=== PATIENT | male | born 1970 | race Caucasian/White ===

== ENCOUNTER 2018-06-30 12:00 | Emergency (ER) | payer OTHER, SELFPAY ==
[2018-06-30 12:01] VITALS: BP 190/126; PULSE 105; RESP 16; TEMP 36.6; O2SAT 94; BMI 32.3
--- NOTE | 2018-06-30 12:08 | RAD_ITS ---
STUDY: X-RAY - LEFT SHOULDER REASON FOR EXAM: Male, 48 years old. Pain following injury. TECHNIQUE: 4 view(s) of the shoulder. COMPARISON: None. FINDINGS: Normal glenohumeral articulation. There is hypertrophic osteoarthrosis of the acromioclavicular joint with inferior osseous spur formation. Normal acromion. Normal humeral head and visualized proximal humerus. The soft tissue structures are unremarkable. Normal visualized pulmonary apex. 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 Electronically Signed: Akshat Toledo MD at 12:49 EDT Tel [phone], Service support ,
--- NOTE | 2018-06-30 13:00 | ED.VISSUMM ---
- ER Visit Summary Date of Service: 06/30/18 Chief Complaint: Left shoulder injury History of Present Illness: The patient is a 48 M who is on training exercises today. He was using his arms to climb out of a hole when he felt a grind in the left shoulder and pain. He is right-handed. Denies any previous shoulder dislocation or shoulder trauma. He can range the shoulder but is extremely painful particularly at abduction at 90?. Denies any decreased sensation or muscle strength. Physical Examination: Afebrile vital signs are stable Patient has limited range of motion due to pain. He is tender more in the anterior aspect of the shoulder joint. He starts to have pain at abduction of about 50? and stops at about 80?. He has no pain to palpation of the supraspinatus muscle. Neurovascular intact distally Test Results: Shoulder films are negative for fracture Emergency Department Course and Treatment: We talked about different possibilities including shoulder sprain, traumatic bursitis, labral tear, rotator cuff tear. We talked about the development of frozen shoulder. Acutely we will be treating with ice anti-inflammatories and sling. He will follow-up with med profile. Impression: 1. Left shoulder sprain This note was generated with [employer] dictation software. It may contain incorrect words, spelling, and punctuation that were not noted in review of the chart prior to signing ED Disposition - Plan for ED Patient: Disposition: Home or Assisted Living Chief Complaint: Upper Extremity Injury Instructions: ED Sprain Shoulder Referrals: [facility]GROUP OF PHYSICIANS] - Additional Instructions: Motrin 800 mg 3 times a day ?1 week Ice 20 minute sessions 6 times a day for the next 3 days Limited use of left arm as discussed Prevention of frozen shoulder as discussed Follow-up with [facility]
== END 2018-06-30 13:15 | disposition home or self-care (01) ==
PROVIDERS: Emergency Provider Emergency Medicine
DX: S43.402A Unspecified sprain of left shoulder joint, initial encounter (principal); X58.XXXA Exposure to other specified factors, initial encounter; Y93.39 Activity, other involving climbing, rappelling and jumping off; Y92.9 Unspecified place or not applicable; Y99.8 Other external cause status
CPT/HCPCS: 73030; 99283

== ENCOUNTER → 2020-04-04 15:16 | Outpatient (CLI) | payer OTHER, SELFPAY ==
[2019-11-21 07:49] VITALS: BMI 31.5
--- NOTE | 2020-04-04 15:28 | RAD_ITS ---
STUDY: X-RAY - LUMBAR SPINE REASON FOR EXAM: Male, 49 years old. LOWER BACK PAIN. HX OF FUSION TECHNIQUE: 3 view(s) of the lumbar spine were obtained. COMPARISON: None FINDINGS: There is straightening of the normal lumbar lordosis. There is no substantial scoliosis. There is a normal alignment of the vertebrae. There has been discectomy at L3-L4 with a disc spacer. Bilateral pedicular screws and short posterior rods seen at L3-L4. Grossly satisfactory postoperative appearance. Moderate degenerative disc disease and spondylosis at L1-L2. Mild degenerative disc disease and loss of height at all other levels. No acute abnormality, no fracture. The soft tissue structures are unremarkable. RAD/Lumbar Spine 2 or 3 Views IMPRESSION: Postoperative changes at L3-L4 and multilevel [id number] degenerative changes. No acute abnormalities. Electronically Signed: Kolby Diaz MD at 15:42 EDT , Service support ,
== END ==
PROVIDERS: Referring Provider Anesthesiology Pain Medicine; Visit Provider Anesthesiology Pain Medicine
DX: M54.9 Dorsalgia, unspecified (principal)
CPT/HCPCS: 72100

== ENCOUNTER → 2020-08-02 07:11 | Outpatient (CLI) | payer OTHER, SELFPAY ==
[2019-11-21 07:49] VITALS: BMI 31.5
--- NOTE | 2020-08-02 07:16 | MRI_ITS ---
STUDY: MRI LUMBAR SPINE WITHOUT CONTRAST REASON FOR EXAM: Male, 50 years old. left low back pain x 6 mos, no radiculopathy, hx prior fusion TECHNIQUE: Standardized fat and water weighted pulse sequences were obtained in the sagittal and axial planes. COMPARISON: X-ray 04/04/2020 FINDINGS: T12-L1: Normal endplates. Normal disc height, hydration and morphology. Normal bilateral facet joints. Normal central canal and bilateral lateral recesses. Normal bilateral intervertebral neural foramina. Normal lumbar lordosis. There is no substantial scoliosis. Normal conus medullaris that terminates at the T12/L1. L1-2: Mild broad disc protrusion asymmetric to the right produces mild spinal stenosis and mild right neural foraminal stenosis. L2-3: Moderate bilateral facet hypertrophy and ligament flavum hypertrophy. Mild broad disc protrusion with a Moderate sized (8 mm) superiorly extending left paracentral disc extrusion produces moderate spinal stenosis and moderate left lateral recess stenosis with effacement of the left L3 nerve root and mild bilateral neural foraminal stenosis. L3-4: Status post discectomy, interbody fusion and transpedicular fixation with anatomic alignment and no spinal stenosis or neural foraminal stenosis. L4-5: Mild bilateral facet hypertrophy and ligament flavum hypertrophy. Mild broad disc protrusion produces mild spinal stenosis and mild bilateral neural foraminal stenosis. L5-S1: Mild broad disc protrusion produces mild spinal stenosis and mild bilateral neural foraminal stenosis. Normal visualized sacral ala. Normal visualized paraspinous soft tissue structures. MRI/Spine Lumbar (Routine) IMPRESSION: Status post fixation at L3/L4 with degenerative disc disease at L2/L3 as described above. Electronically Signed: Wale Rivera MD at 10:12 EDT Tel , Service support ,
== END ==
PROVIDERS: Referring Provider Anesthesiology Pain Medicine; Visit Provider Anesthesiology Pain Medicine
DX: M54.9 Dorsalgia, unspecified (principal); M79.606 Pain in leg, unspecified
CPT/HCPCS: 72148

== ENCOUNTER 2020-08-10 10:30 | Outpatient (RCR) | payer OTHER, SELFPAY ==
[2019-11-21 07:49] VITALS: BMI 31.5
--- NOTE | 2020-07-16 10:58 | HP.PTEVAL_ITS ---
Patient's Visit Information PRESTON JUAREZ is a 50 year old M referred to Physical Therapy by Dr. Isa Howe MD with a diagnosis of LBP. Date of Evaluation: 07/16/20 Physical Therapist: Niranjan Sanchez PT, ATC - Visit Plan Frequency: 2-3x /Week Duration: 4 Weeks Plan: postural awareness, neutral spine stab ex's, nustep, and HEP - Subjective Pt reports a chronic Hx of LBP. Pt reports he had a spinal fusion 5 years ago which helped his pain a lot, but the pain has returned over the past few months and is progressively worsening. No tingling or numbness in LE's. Pt reports sleep difficulty at this time secondary to pain. Pt reports prolonged standing and walking increases his pain. Pt reports the only way he gets relief is to sit down. 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 Pt reports it is difficult for his to stand after sleeping at night. 3/10 pain at rest, 10/10 pain at worst. Pt has had recent xrays, but he has not received the results. - Pain LBP Pain Intensity (Out of 10): 3 Pain Intensity Range: 10 - Objective Neuro: B LE sensation is WNL to light touch. B patellar reflex= 1/3. MMT: B LE's 5/5 throughout. ROM: Pt is moderately limited with ext. L SB is minimally limited. All other ranges are WNL. Repeated movements: RFIS 10x3 NE. CHRISTINE 10x2 increased pain. - Goals Goal 1:: Decrease LBP x 50% to aid with sleep Goal Time Frame: 4-6 Weeks Goal 2:: Pt will be I with postural awareness both physically and verbally to prevent future episodes on LBP Goal Time Frame: 4-6 Weeks Goal 3:: I with HEP Goal Time Frame: 4-6 Weeks - Rehabilitation Potential Physical Therapy Diagnosis: Pt has LBP, limited ROM, and difficulty with prolonged walking secondary to deg changes in L/S Rehabilitation Potential: Good - Anticipated Interventions Patient/Client Instruction: Educate patient on: Condition, Plan of Care For the Purpose of:: To improve self management Therapeutic Exercise to Include: Strength training, Endurance training, Body mechanics, Postural training, Dynamic Lumbar Stabilization For the Purpose of:: To decrease pain, To increase ROM, To improve muscle performance and motor function IF ES: Yes For the Purpose of:: To decrease pain Thank you for the opportunity to evaluate your patient. For Medicare and Medicare HMO plans, please review the plan of care and approve it. It will need to be FAXED BACK to us at [phone] for Medicare purposes. For Medicare only, by signing this I certify the plan of care. Please let me know if there are questions or concerns regarding this plan of care. Physician Signature: Date:
--- NOTE | 2020-08-10 10:55 | HP.PTDCSUM ---
It has been my pleasure to treat PRESTON JUAREZ referred by Dr. Isa Howe MD, with the diagnosis of LBP for a total of 11 visit(s). Discharge Date: Please see the following information for a summary of their discharge status. Subjective: I am ready to be done. I have surgery on 08/22/20. LBP Pain Intensity (Out of 10): 3 % Improvement: 0 Objective/Function: LBP 3/10 at this time, elevates to 10/10 at worst. Pt is I with postural awareness. Pt is I with HEP Goal 1:: Decrease LBP x 50% to aid with sleep Goal Progress: Not Progressing Goal 2:: Pt will be I with postural awareness both physically and verbally to prevent future episodes on LBP Goal Progress: Goal Met Goal 3:: I with HEP Goal Progress: Goal Met Plan: Discontinue to HEP until surgery If there are questions or concerns regarding this patient's physical therapy, please feel free to call me at [phone]. Thank you for the referral of this patient. Sincerely, Niranjan Sanchez, PT, ATC
== END 2020-08-10 19:00 | disposition home or self-care (01) ==
LOC: PT 10:30
PROVIDERS: Referring Provider Anesthesiology Pain Medicine; Visit Provider Anesthesiology Pain Medicine
DX: M54.9 Dorsalgia, unspecified (principal); M79.606 Pain in leg, unspecified
CPT/HCPCS: 97014; 97110; 97161; 97164; G0283

== ENCOUNTER 2020-11-12 14:00 | Outpatient (RCR) | payer OTHER, SELFPAY ==
[2019-11-21 07:49] VITALS: BMI 31.5
--- NOTE | 2020-09-17 13:04 | HP.PTEVAL ---
Patient's Visit Information PRESTON JUAREZ is a 50 year old M referred to Physical Therapy by MARY LOU Cullen with a diagnosis of S/P REVISION B L23 MICRODECOMP AND MICRODISC LL23 FORAMINOTOMIES 08/22. Date of Evaluation: 09/17/20 Physical Therapist: Donna Teresa PT, Cert MDT - Visit Plan Frequency: 2-3x /Week Duration: 4-6 Weeks Plan: NO LUMBAR ROM FOR 3 MORE WKS. POSTURE CORRECTION/STRENGTHENING, INSTRUCTION IN APPROPRIATE BODY MECHANICS AND ACTIVITY MODIFICATIONS. DLS STARTING WITH A NEUTRAL SPINE PROGRESSING ROM TOLERATED AFTER 3 WKS. ROVERTO LE ROM, STRETCHING AND STRENGTHENING. HEP INSTRUCTION. - Subjective S/P REVISION B L23 MICRODECOMP AND MICRODISC LL23 FORAMINOTOMIES 08/22. 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 OFF WORK UNTIL AT LEAST OCT 25 2020. EXPECTING TO BE OFF WORK ABOUT 12 WEEKS. Present symptoms: LOW BACK PAIN. ROVERTO HIP PAIN. Present since: ABOUT 8 MONTHS AGO. Pain Scale: WORST 9/10, LEAST 2/10. Currently: 2/10, GETTING BETTER. Commenced as a result of: STARTED AN ADDITION ON HOUSE. DOES CONSTRUCTION ON THE SIDE ANYWAY BUT HAD RAMPED IT UP BEFORE ONSET OF THIS EPISODE. Worse: STANDING AND WALKING. TURNING IN BED. ANY LIFTING. BENDING. PUTTING DOGS DISHES ON THE FLOOR. Better: RESTING IN FAVORITE CHAIR OR COUCH. Disturbed sleep: YES. Previous history/Previous treatment: PRIOR L45 FUSION 2013. PATIENT REPORTS JUST SLIGHT PAIN BEFORE 8 MONTHS AGO. Treatment this episode: S/P REVISION B L23 MICRODECOMP AND MICRODISC LL23 FORAMINOTOMIES 08/22/2020. Coughing/sneezing/straining: POSITIVE. Gait: TIME AND DISTANCE LIMITED. NO ASSISTIVE DEVICES. WHEN I AM UP FOR 15 TO 20 MINUTES IT TIGHTENS UP. Difficulty initiating urinatin: NO. Accidents: NO. Unexplained weight loss: NO. Imaging: NONE SINCE SURGERY. PMH: L ROTATOR CUFF REPAIR 2017. H/O RIGHT SHLD PAIN. - Objective Sitting/Standing Posture: REDUCED LUMBAR LORDOSIS. NO RELELVENET LATERAL SHIFT. Active Correction of posture: WORSE. INCREASES LBP IF CORRECTED ACTIVELY BUT TOLERATES PASSIVE SUPPORT WELL. Other Observations: INDEP GAIT AND TRANSFERS. NO AD'S. Motor deficit: Sensory deficit: ROM deficit: Reflexes: Dural Signs: Lumbar mvmt loss: NT. Core strength: POOR. Palpation: PIN HEAD SIZE RED AREA VERY BOTTOM OF INCISION. MAYBE AN UNDISOVED STITCH PRESENT. NO DRAINAGE OR SURROUNDING REDNESS. TO MONITOR. WILL CALL SURGEON IF NOT HEALING. TREATMENT: NEUROMUSCULAR REEDUCATION - RETRAINING OF MVMT AND POSTURE FOR SITTING, LYING AND STANDING ACTIVITIES. INSTRUCTIONS IN WEANING OUT OF BACK BRACE. WALKING PROGRAM INST. INITIATED HEP WITH SUPINE ISO ABDOMINALS AND ROVERTO LE DURAL STRETCHING WORKING UP TO 3X10 EA 2 - 3 TIMES A DAY - Goals Goal 1:: DECREASE C/O BACK AND HIP PAIN. Goal Time Frame: 4-6 Weeks Goal 2:: IMPROVE PERSONAL CARE, LIFTING, WALKING, SITTING, STANDING, SLEEP, SOCIAL LIFE, TRAVEL AND WORK FUNCTION. Goal Time Frame: 4-6 Weeks Goal 3:: INSTRUCT IN PROPHYLAXIS Goal Time Frame: 4-6 Weeks - Anticipated Interventions Patient/Client Instruction: Educate patient on: Condition, Plan of Care, Risk Factors, Benefits of Fitness Program For the Purpose of:: To improve self management Therapeutic Exercise to Include: Strength training, Body mechanics, Postural training, Flexibilty training, Neuromotor development, In an aquatic setting, Dynamic Lumbar Stabilization For the Purpose of:: To decrease pain, To increase ROM, To improve muscle performance and motor function, To increase tolerance to activity/condition/position, To improve ability of physical actions for home/community/work/leisure Thank you for the opportunity to evaluate your patient. For Medicare and Medicare HMO plans, please review the plan of care and approve it. It will need to be FAXED BACK to us at [phone] for Medicare purposes. For Medicare only, by signing this I certify the plan of care. Please let me know if there are questions or concerns regarding this plan of care. Physician Signature: Date:
--- NOTE | 2020-10-26 15:24 | HP.PTREVAL ---
Trinity Elizondo, TORO-C, It has been my pleasure to treat PRESTON JUAREZ over the last 16 visits for S/P REVISION B L23 MICRODECOMP AND MICRODISC LL23 FORAMINOTOMIES 08/22. Please see the progress note below for an update on the physical therapy plan of care! Subjective: PATIENT REPORTS HE IS A LOT BETTER. HIS PAIN IS BETTER AND HIS STRENGTH AND STAMINA ARE BETTER. REPORTS SEEING DR. 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 PATIENT REPORTS HE FEELS HE WILL BE READY BY THEN. PATIENT REPORTS HE HAS ACCESS TO A GYM AT WORK AND HE HAS EX EQUIPMENT AT HOME TOO. Objective/Function: PATIENT WAS SEEN TODAY FOR RE-ASSESSMENT OF PROGRESS TOWARD THE SET PT GOALS AND THE NEED FOR FURTHER PHYSICAL THERAPY VS READINESS FOR DISCHARGE. PATIENT IS DOING GREAT WITH PT. HE IS A GOOD CANDIDATE TO CONTINUE PT FOR EX PROGRESSION BASED ON PROGRESS MADE, ROOM FOR FURTHER IMPROVEMENT AND THE NATURE OF HIS VERY PHYSICAL JOB. UPON EXAM TODAY: LUMBAR MVMT LOSS: FLEX - NIL. EXT - MOD. RSG - NIL. LSG - NIL. PATIENT DEMO'S DIFFICULTY WITH SLS ACTIVITIES ROVERTO BUT ABLE TO MAINTAIN LEVEL PELVIS FOR AT LEAST 10 SEC ROVERTO. ROVERTO LE STRENGTH, ROM AND SENSATION WFL. REVIEWED REP EIL, SKTC AND LTR EX'S FOR HOME. INCISION IS WELL HEALED. Plan Plan: CONTINUE PT TO HELP PATINET TRANSITION BACK TO WORK AND TO [facility] AND [employer] GYM PROGRAMS. INCLUDE WORK SIMULATION ACTIVITIES. INCLUDE TRUNK AND LE PROPRIOCEPTION ACTIVITIES. CONTINUE ENDURANCE AND GENERAL ROM, STRETCHING AND STRENGTHENING ACTIVITIES. PATIENT IS AGREEABLE. Goals Goal 1:: DECREASE C/O BACK AND HIP PAIN. Goal Time Frame: 4-6 Weeks Goal Progress: Progressing Goal 2:: IMPROVE PERSONAL CARE, LIFTING, WALKING, SITTING, STANDING, SLEEP, SOCIAL LIFE, TRAVEL AND WORK FUNCTION. Goal Time Frame: 4-6 Weeks Goal Progress: Progressing Goal 3:: INSTRUCT IN PROPHYLAXIS Goal Time Frame: 4-6 Weeks Goal Progress: Progressing Anticipated Interventions Patient/Client Instruction: Educate patient on: Condition, Plan of Care, Risk Factors, Benefits of Fitness Program For the Purpose of:: To improve self management Therapeutic Exercise to Include: Strength training, Body mechanics, Postural training, Flexibilty training, Neuromotor development, In an aquatic setting, Dynamic Lumbar Stabilization For the Purpose of:: To decrease pain, To increase ROM, To improve muscle performance and motor function, To increase tolerance to activity/condition/position, To improve ability of physical actions for home/community/work/leisure Please do not hesitate to contact me at [phone] by phone or if you have questions or concerns regarding this new plan of care! Sincerely, Donna Teresa, PT, Cert MDT
--- NOTE | 2020-11-12 14:49 | HP.PTDCSUM ---
It has been my pleasure to treat PRESTON JUAREZ referred by MARY LOU Cullen, with the diagnosis of S/P REVISION B L23 MICRODECOMP AND MICRODISC LL23 FORAMINOTOMIES 08/22 for a total of 22 visit(s). Discharge Date: Please see the following information for a summary of their discharge status. Subjective: PATIENT REPORTS THERAPY HAS BEEN GOOD AND HE FEELS READY TO GO BACK TO WORK AND BE DISCHARGED. HE STATES HE CAN CONTINUE THE EX'S ON HIS OWN AT WORK AND AT HOME. Low back Pain Intensity (Out of 10): 0 % Improvement: 97 Objective/Function: PATIENT WAS SEEN TODAY FOR RE-ASSESSMENT OF PROGRESS TOWARD THE SET PT GOALS AND THE NEED FOR FURTHER PHYSICAL THERAPY VS READINESS FOR DISCHARGE. PATIENT HAS DONE GREAT WITH PT. HE IS APPROPRIATE FOR DISCHARGE TO INDEP EX AT THIS TIME. UPON EXAM TODAY: LUMBAR MVMT LOSS: FLEX - NIL. EXT - MIN. RSG - NIL. LSG - NIL. PATIENT STILL DEMO'S SOME LEG SHAKING WITH SLS ACTIVITIES ROVERTO WITH TESTING BUT IT IS NOT LIMITING HIM FUNCTIONALLY. ALL GOALS HAVE BEEN MET. Goal 1:: DECREASE C/O BACK AND HIP PAIN. Goal Progress: Goal Met Goal 2:: IMPROVE PERSONAL CARE, LIFTING, WALKING, SITTING, STANDING, SLEEP, SOCIAL LIFE, TRAVEL AND WORK FUNCTION. Goal Progress: Goal Met Goal 3:: INSTRUCT IN PROPHYLAXIS Goal Progress: Goal Met Plan: D/C. PATIENT AGREEABLE. If there are questions or concerns regarding this patient's physical therapy, please feel free to call me at [phone]. Thank you for the referral of this patient. Sincerely, Donna Teresa, PT, Cert MDT
== END 2020-11-12 19:00 | disposition home or self-care (01) ==
LOC: PT 14:00
PROVIDERS: Referring Provider Nurse Practitioner Acute Care; Visit Provider Nurse Practitioner Acute Care
DX: M48.061 Spinal stenosis, lumbar region without neurogenic claudication (principal)
CPT/HCPCS: 97110; 97112; 97162; 97164

== ENCOUNTER 2022-10-30 16:00 | Outpatient (RCR) | payer OTHER, SELFPAY ==
--- NOTE | 2022-10-06 18:28 | HP.PTEVAL_ITS ---
Patient's Visit Information PRESTON JUAREZ is a 52 year old M referred to Physical Therapy by MARK ARZOLA with a diagnosis of LUMBAR STRAIN. Date of Evaluation: 10/06/22 Physical Therapist: Donna Teresa PT, Cert MDT - Visit Plan Frequency: 2-3x /Week Duration: 4-6 Months Plan: NOV 11 [address] SEKOU MULLEN. MONITOR LLE SX'S AND L ANKLE WEAKNESS. AQUATIC THERAPY FOR PAIN RELEIF, POSTURE CORRECTION/STRENGTHENING, INSTRUCTION IN APPROPRIATE BODY MECHANICS AND ACTIVITY MODIFICATIONS. DLS STARTING WITH A NEUTRAL SPINE PROGRESSING ROM TOLERATED. ROVERTO LE ROM, STRETCHING AND STRENGTHENING. HEP INSTRUCTION. 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 NOT CURRENTLY OFF WORK BUT HAS MISSED A FEW DAYS OF WORK. STATES HE CAN PRETTY MUCH DO EVERYTHING IF HE IS EXTRA CAREFUL. OFF WORK FROM [employer]RE [employer] X 2 WEEKS NOW FOR VACATION. 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 Present symptoms: ROVERTO LOW BACK PAIN LEFT > RIGHT. LEFT BUTTOCK PAIN AND AROUND HIP. GETTING SOME WEAKNESS AND WEIRD FEELING GOING DOWN LEFT LEG TO CALF AND JUNIOR. Present since: 3 WKS AGO. WOKE UP WITH THE PAIN. Pain Scale: WORST 5/10, LEAST 1/10 (IN THE LAST 2-3 DAYS). Currently: 1/10. Is it getting better, worse or staying the same: GETTING BETTER ON THE PREDNISONE. Commenced as a result of: NO APPARENT REASON. Symptoms at onset: WOKE UP WITH L LBP AND IT GOT WORSE IN STANDING. Worse: BEING ON FEET - STANDING AND WALKING. Better: SITTING AND LYING. OTHER: PATIENT REPORTS BENDING, LIFTING AND TWISTING CURRENTLY DO NOT INCREASE PAIN. Disturbed sleep: SOMETIMES. Previous history/Previous treatment: 10 YEARS AGO LUMBAR FUSION L45 BY DR. SEKOU MULLEN. 2 YEARS AGO HAD SECOND LUMBAR SURGERY BY DR. SEKOU MULLEN. Treatment this episode: HAS HAD ONE DOCTOR VISIT AT [facility] AND WAS PRESCRIBED PREDNISONE. CALLED THEM AND THEN SECOND ROUND OF PREDNISONE ORDERED. STATES HERNANDO SORENSEN AT [facility] ORDERED MRI BUT DENIED. HAS BEEN DOING PRESCRIBED HOME EX'S TOO BUT HAVEN'T HELPED MUCH. ON SECOND ROUND OF PREDNISONE. LAST DOSE OF PREDNISONE IS DUE TOMORROW. WAS GOOD ON PREDNISONE FIRST TIME THEN PAIN CAME BACK WHEN STOPPED THE MEDICINE. PREDNISONE IS HELPING AGAIN THIS TIME. Coughing/sneezing/straining: NEGATIVE. Gait: LIMPING MORE SOMETIMES ON L LE NOW WHEN LEG FEELS WEIRD. TIME AND DISTANCE LIMITED. Bowel or Bladder Dysfunction: NO. (INSTRUCTED PATIENT TO GET URGENT CARE IF CHANGE IN BOWEL OR BLADDER FUNCTION). Accidents: NO. Unexplained weight loss: NO. Imaging: RECENTL LUMBAR X-RAYS AND PATIENT REPORTS THE PA TOLD HER THEY LOOK PRETTY GOOD. STATES THEY SAW SOME NARROWING BUT THE FUSION LOOKED GOOD AND THERE ISN'T ANYTHING LOOSE. PMH/Recent major surgery: L RCR ABOUT 4 YEARS AGO. REMOTE L KNEE SURGERY - RECOVERED. HTN. - Objective Sitting/Standing Posture: FAIR. REDUCED LUMBAR LORDOSIS BUT NO RELEVENT LATERAL SHIFT. Active Correction of posture: WORSE MORE PRESSURE. Other Observations: INDEP GAIT AND TRANSFERS. Sensory deficit: DECREASED L LATERAL LEG LIGHT TOUCH COMPARED TO R. ROM deficit: TIGHT ROVERTO LE HS'S AND GASTROC SOLEUS COMPLEX'S L > R. Motor deficit: LEFT DORSIFLEXION 3-/5. OTHERWISE ROVERTO LE'S GROSSLY 5/5 WITH MMT'ING. PATIENT REPORTS INTERMITTENT WEAKNESS IN L LE WHEN LEG FEELS WIERD. RECOMMENDED PATIENT LET DR. SEKOU MULLEN KNOW ABOUT L ANKLE WEAKNESS. Reflexes: UNABLE TO ELICIT ROVERTO LE DTR'S. Dural Signs: POSITIVE LLE. Lumbar mvmt loss: flex - NIL. ext - MOD. R SG - MOD. L SG - MOD. PATIENT C/O INCREASED L LBP WITH L SG TESTING. Core strength: FAIR. Palpation: NO ACUTE LUMBAR TENDERNESS. TREATMENT: NEUROMUSCULAR REEDUCATION - INTRODUCTION TO RETRAINING OF MVMT AND POSTURE FOR SITTING, LYING AND STANDING ACTIVITIES. USE OF LUMBAR SUPPORT, PROPER USE OF ICE/HEAT AND AVOIDANCE OF PERIPHERALIZATION OF SX'S. - Balance/Special Test Scores Oswestry Low Back Score: 12 - Goals Goal 1:: DECREASE C/O LOW BACK AND L LE SX'S. Goal Time Frame: 4-6 Weeks Goal 2:: IMPROVE LIFTING, SITTING, STANIDNG, WALKING, SLEEP, TRAVEL AND WORK/HOMEMAKING FUNCTION Goal Time Frame: 4-6 Weeks Goal 3:: INSTRUCT IN PROPHYLAXIS Goal Time Frame: 4-6 Weeks - Anticipated Interventions Patient/Client Instruction: Educate patient on: Condition, Plan of Care, Risk Factors For the Purpose of:: To improve self management Therapeutic Exercise to Include: Strength training, Body mechanics, Postural training, Flexibilty training, Gait and locomotor training, Neuromotor developm ent, In an aquatic setting, Dynamic Lumbar Stabilization For the Purpose of:: To decrease pain, To increase ROM, To improve muscle performance and motor function, To increase tolerance to activity/condition/position, To improve ability of physical actions for home/community/work/leisure, To improve gait and locomotor functions Thank you for the opportunity to evaluate your patient. For Medicare and Medicare HMO plans, please review the plan of care and approve it. It will need to be FAXED BACK to us at [phone] for Medicare purposes. For Medicare only, by signing this I certify the plan of care. Please let me know if there are questions or concerns regarding this plan of care. Physician Signature: Date:
--- NOTE | 2023-01-20 09:54 | HP.PT.NRP ---
PRESTON JURAEZ was seen in my office for initial evaluation on 10/06/22. The following Plan of Care was established for this patient: Initial Frequency: 2-3x /Week Initial Duration: 4-6 Months Patient/Client Instruction: Educate patient on: Condition, Plan of Care, Risk Factors For the Purpose of:: To improve self management Therapeutic Exercise to Include: Strength training, Body mechanics, Postural training, Flexibilty training, Gait and locomotor training, Neuromotor development, In an aquatic setting, Dynamic Lumbar Stabilization For the Purpose of:: To decrease pain, To increase ROM, To improve muscle performance and motor function, To increase tolerance to activity/condition/position, To improve ability of physical actions for home/community/work/leisure, To improve gait and locomotor functions This patient was last seen in our office 10/30/22. Pertinent comments regarding their Physical therapy will appear below: This patient has not returned to Physical Therapy and is appropriate to return to MD for further follow-up as needed. At this point I will be discontinuing this patient from physical therapy. I would be happy to see this patient again in the future if found appropriate by the physician. Thank you! Donna Teresa, PT, Cert MDT Balance/Gait/Functional tests - Balance/Special Test Scores Oswestry Low Back Score: 12
== END 2022-10-30 19:00 | disposition home or self-care (01) ==
LOC: PT 16:00
DX: S39.012D Strain of muscle, fascia and tendon of lower back, subsequent encounter (principal)
CPT/HCPCS: 97112; 97113; 97162

== ENCOUNTER 2024-11-14 08:27 | Day surgery (SDC) | payer OTHER, SELFPAY ==
--- NOTE | 2024-11-03 12:02 | PAT.ANESEVAL ---
Pre-Assessment Diagnosis/Proposed Procedure Planned Operative Procedure(s): ROBOTIC ASSISTED LEFT INGUINAL HERNIA REPAIR WITH MESH Anesthesia History Anesthesia History - driller and broacher: Anesthesia History - driller and broacher Hx Hospitalization No 11/03/24 10:07 Any Problems With Anesthesia No 11/03/24 10:07 Cholinesterase deficiency No 11/03/24 10:07 You/Your Family Experience No 11/03/24 10:07 fever (hyperthermia) with Relationship Recent Exposure to Contagious Disease Does patient have nerve No 11/03/24 10:07 stimulator Patient instructed to have device shut off --Does patient have Pacemaker or ICD? When Was Last Pacemaker Check QUESTION #4 FULL TEXT: You/Your Family Experience fever (hyperthermia) with Anesthesia Last Oral Intake Last Oral intake: Last Oral Intake NPO since Meds taken in AM with sips of water? Meds patient instructed to take am of surgery PONV PONV - driller and broacher: PONV - driller and broacher Female No 11/03/24 10:07 HX of Motion Sickness No 11/03/24 10:07 HX of N/V After Surgery No 11/03/24 10:07 Non-Smoker No 11/03/24 10:07 Duration of Surgery greater Yes 11/03/24 10:07 than 60 minutes Number of Risk Factors 1 11/03/24 10:07 PONV Score Low Risk 11/03/24 10:07 Height & Weight Height & Weight: Anesthesia: Height & Weight Height 5 ft 10 in 10/27/24 14:08 Respiratory Assessment Respiratory Assessment - driller and broacher: Respiratory Tract Infection Hx - driller and broacher Hx Respiratory Tract Infection No 11/03/24 10:07 STOP Sleep Apnea STOP Sleep Apnea - driller and broacher: STOP Sleep Apnea - driller and broacher Hx Hypertension Yes: CONTROLLED WITH MED 11/03/24 10:07 Hx Sleep Apnea No 11/03/24 10:07 CPAP BIPAP Do you snore loudly (louder No 11/03/24 10:07 than talking or can be heard Do you often feel tired/ No 11/03/24 10:07 fatigued/ sleepy during daytime? Has anyone observed you stop No 11/03/24 10:07 breathing during sleep? STOP Results Negative 11/03/24 10:07 QUESTION #5 FULL TEXT : Do you snore loudly (louder than talking or can be heard through closed doors)? 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 Specify any problems Hx of Preganancy in last 3 No 11/03/24 10:07 Months Nurse Filling Out Transfusion DSCHRIBER 11/03/24 10:07 & Questions: Date: 11/03/24 11/03/24 10:07 Time: 10:08 11/03/24 10:07 Patient unable to answer at this time (ie. 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 Home Medications ?Medication ?Instructions ?Recorded ?Last Taken ?Type ascorbic acid (vitamin C) 500 mg 500 mg PO QDAY 10/27/24 Unknown History tablet calcium 600 mg-D3 20 mcg-magnesium 1 tab PO DAILY 10/27/24 Unknown History 50 mg-copper 1 [id number] tablet coenzyme Q10 200 mg capsule 200 mg PO QDAY 10/27/24 Unknown History lisinopril 20 1 tab PO QDAY 10/27/24 Unknown History mg-hydrochlorothiazide 12.5 mg tablet sour mckeon extract 1,000 mg 1,000 mg PO DAILY 10/27/24 Unknown History capsule (Tart Mckeon Extract) Allergy/AdvReac Type Severity Reaction Status Date / Time No Known Allergies Allergy Verified 11/03/24 10:05 Family History (Updated 10/27/24 @ 14:07 by Em Lundberg) Grandmother Cancer Father Heart disease Surgical History (Updated 11/03/24 @ 10:14 by Xochitl Hui) Hx of decompressive lumbar laminectomy Hx of colonoscopy History of repair of left rotator cuff History of lumbar fusion History of appendectomy Social History (Updated 10/27/24 @ 14:08 by Em Lundberg) Smoking Status: Current every day smoker tobacco type: smokeless tobacco alcohol intake: current alcohol intake frequency: a few times a week Alcohol type: beer and hard liquor substance use type: does not use Audit: Pertinent Findings Pertinent Findings EKG Perinent findings: 07/26/2024 sinus rhythm RSR V1 nondiagnostic probably normal Recommendation Anesthesia Recommendation Anesthesia recommendation: OPTIMIZED for anesthesia
[2024-11-08 12:49] LABS: Hematocrit 45.5 % (40-54); Hemoglobin 15.9 g/dL (13.0-16.5); Mean Corp Hgb Conc 34.9 g/dL (32-36); Mean Corpuscular Hgb 32.1 pg (27.0-32.0); Mean Corpuscular Volume 91.9 fL (80-94); Mean Platelet Vol. 10.8 fl (6.2-12.0); Platelet Count 260 K/mm3 (150-450); RBC Distribution Width CV 11.9 % (11.6-14.6); RBC Distribution Width SD 40.2 fl (35.1-43.9); Red Blood Count 4.95 M/mm3 (4.6-6.2); White Blood Count 7.9 K/mm3 (4.4-11.0)
[2024-11-08 13:12] LABS: Anion Gap 6 (5-15); BUN 20 mg/dL (7-18); BUN/Creat Ratio 17.2 RATIO (10-20); Calcium,Total 9.3 mg/dL (8.5-10.1); Chloride 101 mmol/L (98-107); Creatinine, Serum 1.16 mg/dL (0.70-1.30); EST Glomerular Filtration Rate 70 mL/min (>60); Est Glom Filt Rate - Afr Amer 84 mL/min (>60); Glucose 117 mg/dL (74-106); Sodium Level 136 mmol/L (136-145)
[2024-11-14] VITALS (12 sets, daily range): BP systolic 120–151; BP diastolic 72–101; PULSE 84–98; RESP 12–18; TEMP 36–36.7; O2SAT 95–99; BMI 34.1
[2024-11-14] MEDS: 0.9% Normal Saline (1000mL) 1,000 ML 15 ML IV (09:10)
--- NOTE | 2024-11-14 09:37 | PCM.HP.STD ---
HPI - General General Date of Admission: 11/14/24 Date of Service: 11/14/24 Chief Complaint: left inguinal hernia HPI Narrative RPESTON JUAREZ, is a 54 M who presents for elective left inguinal hernia repair. Patient was recently seen through my office for left inguinal hernia. I offered him a robotic repair with mesh. We discussed the possibility of a right inguinal hernia as well if 1 was noted at the time of surgery. No obvious right-sided hernia was encountered on exam when seen in the office. We discussed the details of the planned surgery including risk benefits and alternatives and he wished to proceed. 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 cardiology consultants health examination Home Medications ?Medication ?Instructions ?Recorded ?Last Taken ?Type ascorbic acid (vitamin C) 500 mg 500 mg PO QDAY 10/27/24 Unknown History tablet calcium 600 mg-D3 20 mcg-magnesium 1 tab PO DAILY 10/27/24 Unknown History 50 mg-copper 1 [id number] tablet coenzyme Q10 200 mg capsule 200 mg PO QDAY 10/27/24 Unknown History lisinopril 20 1 tab PO QDAY 10/27/24 Unknown History mg-hydrochlorothiazide 12.5 mg tablet sour diaz extract 1,000 mg 1,000 mg PO DAILY 10/27/24 Unknown History capsule (Tart Diaz Extract) Allergy/AdvReac Type Severity Reaction Status Date / Time No Known Allergies Allergy Verified 11/14/24 08:56 Family History Grandmother Cancer Father Heart disease Surgical History Hx of decompressive lumbar laminectomy Hx of colonoscopy History of repair of left rotator cuff History of lumbar fusion History of appendectomy Social History Smoking Status: Current every day smoker tobacco type: smokeless tobacco alcohol intake: current alcohol intake frequency: a few times a week Alcohol type: beer and hard liquor substance use type: does not use ROS Constitutional Constitutional: Reports systems reviewed and no addt'l complaints, except as documented Eyes Eyes: Reports systems reviewed and no addt'l complaints, except as documented ENT HEENT: Reports systems reviewed and no addt'l complaints, except as documented Cardiovascular Cardiovascular: Reports systems reviewed and no addt'l complaints, except as documented Respiratory/Chest Respiratory/Chest: Reports systems reviewed and no addt'l complaints, except as documented Gastrointestinal Gastrointestinal: Reports systems reviewed and no addt'l complaints, except as documented Genitourinary Genitourinary: Reports systems reviewed and no addt'l complaints, except as documented Vital Signs Vital Signs Vital Signs: 11/14/24 08:57 11/14/24 08:57 11/14/24 09:20 Temperature 98.1 F Temperature Source Temporal Pulse Rate 84 Respiratory Rate 16 Respiratory Pattern Normal Blood Pressure 151/101 H Blood Pressure Mean 117 Blood Pressure Source Monitor Monitor Blood Pressure Position Semi-Fowlers Semi-Fowlers Blood Pressure Location Left Arm Left Arm Pulse Ox 99 Oxygen Delivery Method Room Air Weight Weight: 238 lb 1.588 oz Body Mass Index (BMI) 34.1 Physical Exam Narrative He is alert and oriented x 3. He is in no acute distress. Head is normocephalic and atraumatic. Results Lab / Micro Data 11/08/24 12:01 11/08/24 12:01 Assessment & Plan Assessment/Plan (1) Inguinal hernia of left side without obstruction or gangrene: PLAN: Plan The patient is a 54-year-old male with a left inguinal hernia. I have offered him a robotic left inguinal hernia repair with mesh. We discussed the details of the planned procedure and he wished to proceed. Surgery will begin momentarily.
--- NOTE | 2024-11-14 09:37 | HP.PCM_ITS ---
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 Home Medications ?Medication ?Instructions ?Recorded ?Last Taken ?Type ascorbic acid (vitamin C) 500 mg 500 mg PO QDAY 10/27/24 Unknown History tablet calcium 600 mg-D3 20 mcg-magnesium 1 tab PO DAILY 10/27/24 Unknown History 50 mg-copper 1 [id number]-acis-mcdf tablet coenzyme Q10 200 mg capsule 200 mg PO QDAY 10/27/24 Unknown History lisinopril 20 1 tab PO QDAY 10/27/24 Unknown History mg-hydrochlorothiazide 12.5 mg tablet sour mckeon extract 1,000 mg 1,000 mg PO DAILY 10/27/24 Unknown History capsule (Tart Mckeon Extract) Allergy/AdvReac Type Severity Reaction Status Date / Time No Known Allergies Allergy Verified 11/14/24 08:56 Family History (Updated 10/27/24 @ 14:07 by Em Lundberg) Grandmother Cancer Father Heart disease Surgical History (Updated 11/03/24 @ 10:14 by Xochitl Hui) Hx of decompressive lumbar laminectomy Hx of colonoscopy History of repair of left rotator cuff History of lumbar fusion History of appendectomy Social History (Updated 10/27/24 @ 14:08 by Em Lundberg) Smoking Status: Current every day smoker tobacco type: smokeless tobacco alcohol intake: current alcohol intake frequency: a few times a week Alcohol type: beer and hard liquor substance use type: does not use Vital Signs Vital Signs Vital Signs: 11/14/24 08:57 11/14/24 08:57 11/14/24 09:20 Temperature 98.1 F Temperature Source Temporal Pulse Rate 84 Respiratory Rate 16 Respiratory Pattern Normal Blood Pressure 151/101 H Blood Pressure Mean 117 Blood Pressure Source Monitor Monitor Blood Pressure Position Semi-Fowlers Semi-Fowlers Blood Pressure Location Left Arm Left Arm Pulse Ox 99 Oxygen Delivery Method Room Air Weight Weight: 238 lb 1.588 oz Body Mass Index (BMI) 34.1 Results Lab / Micro Data 11/08/24 12:01 11/08/24 12:01
--- NOTE | 2024-11-14 09:48 | PCM.PRE.AN2 ---
ASA Classification* ASA Classification ASA Classification: 3 Assessment & Plan Anesthesia* Anesthesia Assessment Anesthesia Assessment: Discussed sedation and/or anesthesia options, risks, benefits, and alternatives with patient/parents/legal guardian/POA. Questions invited. The patient/parents/legal guardian/POA seems to understand and agrees to proceed with anesthesia plan. Reviewed the physical assessment, medical history, allergy history and patient home medications list prior to surgery/procedure/anesthetic and documented any changes. Performed airway and anesthesia risk assessments. Anesthesia Type Anesthesia Type: General History Source History Obtained from:: Patient and Chart Anesthesia Focused Assessment* Temperature: 98.1 F Pulse Rate: 84 Blood Pressure: 151/101 Respiratory Rate: 16 Pulse Ox: 99 Oxygen Delivery Method: Room Air Airway Assessment Mouth opens: >3 cm Mallampati Score: II Teeth Condition: Intact Neck Range of motion (ROM): Full ROM Focused Labs Anesthesia Preop lab: CBC WBC 7.9 K/mm3 (4.4-11.0) 11/08/24 12:01 RBC 4.95 M/mm3 (4.6-6.2) 11/08/24 12:01 Hgb 15.9 g/dL (13.0-16.5) 11/08/24 12:01 Hct 45.5 % (40-54) 11/08/24 12:01 Plt Count 260 K/mm3 (150-450) 11/08/24 12:01 CHEMISTRY Potassium 4.0 mmol/L (3.5-5.1) 11/08/24 12:01 Sodium 136 mmol/L (136-145) 11/08/24 12:01 BUN 20 mg/dL (7-18) H 11/08/24 12:01 Creatinine 1.16 mg/dL (0.70-1.30) 11/08/24 12:01 Glucose 117 mg/dL (74-106) H 11/08/24 12:01 COAG Pre-Assessment Diagnosis/Proposed Procedure Planned Operative Procedure(s): ROBOTIC ASSISTED LEFT INGUINAL HERNIA REPAIR WITH MESH Anesthesia History Anesthesia History - scale reclamation tender: Anesthesia History - scale reclamation tender Hx Hospitalization No 11/03/24 10:07 Any Problems With Anesthesia No 11/03/24 10:07 Cholinesterase deficiency No 11/03/24 10:07 You/Your Family Experience No 11/03/24 10:07 fever (hyperthermia) with Relationship Recent Exposure to Contagious No 11/14/24 08:57 Disease Does patient have nerve No 11/03/24 10:07 stimulator Patient instructed to have device shut off --Does patient have Pacemaker or ICD? When Was Last Pacemaker Check QUESTION #4 FULL TEXT: You/Your Family Experience fever (hyperthermia) with Anesthesia Last Oral Intake Last Oral intake: Last Oral Intake NPO since 20:00 11/14/24 08:57 Meds taken in AM with sips of No 11/14/24 08:57 water? Meds patient instructed to take am of surgery PONV PONV - scale reclamation tender: PONV - scale reclamation tender Female No 11/03/24 10:07 HX of Motion Sickness No 11/03/24 10:07 HX of N/V After Surgery No 11/03/24 10:07 Non-Smoker No 11/03/24 10:07 Duration of Surgery greater Yes 11/03/24 10:07 than 60 minutes Number of Risk Factors 1 11/03/24 10:07 PONV Score Low Risk 11/03/24 10:07 Height & Weight Height & Weight: Anesthesia: Height & Weight Height 5 ft 10 in 11/14/24 08:57 Weight: 108 kg 11/14/24 08:57 Body Mass Index (BMI) 34.1 11/14/24 08:57 Respiratory Assessment Respiratory Assessment - scale reclamation tender: Respiratory Tract Infection Hx - scale reclamation tender Hx Respiratory Tract Infection No 11/03/24 10:07 STOP Sleep Apnea STOP Sleep Apnea - scale reclamation tender: STOP Sleep Apnea - scale reclamation tender Hx Hypertension Yes: CONTROLLED WITH MED 11/03/24 10:07 Hx Sleep Apnea No 11/03/24 10:07 CPAP BIPAP Do you snore loudly (louder No 11/03/24 10:07 than talking or can be heard Do you often feel tired/ No 11/03/24 10:07 fatigued/ sleepy during daytime? Has anyone observed you stop No 11/03/24 10:07 breathing during sleep? STOP Results Negative 11/03/24 10:07 QUESTION #5 FULL TEXT : Do you snore loudly (louder than talking or can be heard through closed doors)? 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 Specify any problems Hx of Preganancy in last 3 No 11/03/24 10:07 Months Nurse Filling Out Transfusion DSCHRIBER 11/03/24 10:07 & Questions: Date: 11/03/24 11/03/24 10:07 Time: 10:08 11/03/24 10:07 Patient unable to answer at this time (ie. confused, unrespo /Reproduction History /Reproductive History - scale reclamation tender: /Reproductive Hx- scale reclamation tender Hx Now No 11/03/24 10:07 Gestational Age (in weeks): EDC: Hx Hx Para Hx Section SAB No 11/03/24 10:07 Active Medications Active Medications: Current Medications Generic Name Dose Route Start Last Admin Trade Name Freq PRN Reason Stop Dose Admin Cefazolin Sodium 2 gm/ N/A 20 mls @ 400 mls/hr 11/14/24 11:45 IV 11/14/24 11:47 PREOP ONE Sodium Chloride 1,000 mls @ 15 mls/hr 11/14/24 08:50 11/14/24 09:10 IV 11/19/24 22:09 15 mls/hr .Q48H RUFINO Administration Protocol [facility] Medical History Alcohol use Arthritis High cholesterol Back pain Chewing tobacco dependence Leg cramps History of pain when walking History of stress test Hypertension Inguinal hernia of left side without obstruction or gangrene Encounter for PPD skin test reading Contact dermatitis 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 Home Medications ?Medication ?Instructions ?Recorded ?Last Taken ?Type ascorbic acid (vitamin C) 500 mg 500 mg PO QDAY 10/27/24 Unknown History tablet calcium 600 mg-D3 20 mcg-magnesium 1 tab PO DAILY 10/27/24 Unknown History 50 mg-copper 1 hb-lqau-fepy tablet coenzyme Q10 200 mg capsule 200 mg PO QDAY 10/27/24 Unknown History lisinopril 20 1 tab PO QDAY 10/27/24 Unknown History mg-hydrochlorothiazide 12.5 mg tablet sour mckeon extract 1,000 mg 1,000 mg PO DAILY 10/27/24 Unknown History capsule (Tart Mckeon Extract) Allergy/AdvReac Type Severity Reaction Status Date / Time No Known Allergies Allergy Verified 11/14/24 08:56 Family History Grandmother Cancer Father Heart disease Surgical History Hx of decompressive lumbar laminectomy Hx of colonoscopy History of repair of left rotator cuff History of lumbar fusion History of appendectomy Social History Smoking Status: Current every day smoker tobacco type: smokeless tobacco alcohol intake: current alcohol intake frequency: a few times a week Alcohol type: beer and hard liquor substance use type: does not use Review of Systems (Anesthesia) ROS Narrative System reviewed and no additional complaints, except as documented.
[2024-11-14] MEDS: Cefazolin 2 GM in Syringe IV (09:58)
[2024-11-14] MEDS: Gentamicin 80 MG/2 ML Vial (10:40)
[2024-11-14] MEDS: Bupiv/Epi 0.25% 30 ML Vial (11:30)
--- NOTE | 2024-11-14 11:41 | EX.PCM.DISCH ---
Discharge Instructions Diet Discharge Diet: Light diet - advance as tolerated Activity Discharge Activity: Return to Normal Activity and May Shower May shower in (days): 1 Ice area for (Minutes): 30 Lifting Restrictions: No lifting over 20 pounds for 6 weeks Dressing / Incision Call your doctor if your incision/area has: Continuous Slow Oozing, Sudden Increased Bleeding, Increased Pain/ Swelling, Increased Redness, Foul Smelling Discharge and Swelling at the incision site Call your doctor if you observe: Fever of 101 or Higher Remove Dressing in: leave until fall off Cleanse incision/area with: Soap & Water Follow Up Care Please Follow Up With: Sal Estevez MD When: 2 weeks Test Results: Test results from this visit will be discussed in further detail at your follow-up appointment, if applicable. Pending Tests Upon Discharge: None Discharge Plan Admission Primary Reason for Your Visit: Left inguinal hernia repair Attending Provider: Sal Estevez Primary Care Provider: Herson Patel Consulting Providers: Raad Platt Instructions Print Language: Indonesian Discharge Orders/Prescriptions Prescriptions: New oxycodone-acetaminophen [Percocet] 5-325 mg tablet 1 tab PO Q8H PRN (Reason: pain) 3 Days Qty: 10 0RF Continued lisinopril-hydrochlorothiazide 20-12.5 mg tablet 1 tab PO QDAY Ca carb-D3-mag vb-rxe-rebq-Zn 600 mg-20 mcg- 50 mg-1 mg tablet 1 tab PO DAILY Tart Mckeon Extract 1,000 mg capsule 1,000 mg PO DAILY coenzyme Q10 200 mg capsule 200 mg PO QDAY ascorbic acid (vitamin C) 500 mg tablet 500 mg PO QDAY Referrals / Follow Up: Herson Patel MD [Primary Care Provider] - Disposition Disposition (needs filled in before D/C Order can be placed): Home, Self Care
--- NOTE | 2024-11-14 11:43 | PCM.POST.ANE ---
Anesthesia: Postop Eval I Current Vital Signs Temperature: 97.6 F Pulse Rate: 96 Blood Pressure: 136/82 Respiratory Rate: 18 Pulse Ox: 97 Oxygen Delivery Method: Room Air Assessment Airway patent: Yes Spontaneous unlabored respirations: Yes Mental status: Awake and Calm nausea: No Vomiting: No Anesthesia Complication: No Fluid Hydration Crystalloid volume administer (ml): 900 Total IV fluid infused: 900 Progress Note Anesthesia document: Postop Eval 1 completed: Yes
--- NOTE | 2024-11-14 11:46 | PCM.OPRPT ---
Problems Associated Problem List Diagnoses (1) Inguinal hernia of left side without obstruction or gangrene: Procedures Digestive 40xxx-49xxx: 17731 Lap ing hernia repair init Operative Report (Standard) Operative Information Date of Procedure: 11/14/24 Pre-Operative Diagnosis: Left inguinal hernia Post-Operative Diagnosis: Left inguinal hernia Surgery/Procedure Performed: Robotic left inguinal hernia repair with mesh optometrist president/practice owner: Yes Neurological Surgeon: Miguel Van Tasks completed by food service assistant: Closing Additional bioinformatics assistant?: No Type of Anesthesia: General and Local RN Documented Start/Stop Times: Operation Date: 11/14/24 11:45 Case Time Into Pre-Op 11/14/24 08:48 Out of Pre-Op 11/14/24 09:54 Anesthesia Start 11/14/24 09:58 Into Room 11/14/24 09:58 Procedure Start 11/14/24 10:17 Procedure End 11/14/24 11:30 Anesthesia End 11/14/24 11:37 Out of Room 11/14/24 11:37 Into Recovery 11/14/24 11:40 Procedure Start Time: 10:17 Procedure Stop Time: 11:30 Select all DRAINS/GRAFTS/IMPLANTS that apply: Implanted device Implanted device details: ProGrip 15 x 10 mesh Special Medications: 3 g Ancef Estimated Blood Loss: Minimal Specimen collected: No Description of surgery: The patient is a 54-year-old male who was recently seen through the office with a left inguinal hernia. He had had this hernia for some time but this was becoming increasingly symptomatic. I offered him a robotic left inguinal hernia repair with mesh. We discussed the details of the planned procedure including the risks benefits and alternatives. He wished to proceed. He was brought to the operating room today following informed consent. He was placed supine the operative table with arms initially outstretched on arm boards. General endotracheal anesthesia was induced. Once adequately anesthetized his arms were comfortably tucked at his side. His abdomen is then prepped and draped in the usual sterile manner. He was placed in mild Trendelenburg positioning. An 8 mm incision was made just above the umbilicus through which a 5 mm trocar was placed optically. This was placed without incident. Once in place the abdomen is then fully insufflated with CO2 gas a 5 mm 0 degree scope was inserted. There were no signs of bowel or vascular injury. Next an 8 mm trocar was placed under direct visualization on the right side of the abdomen. Another 8 mm trocar was placed under direct visualization on the left side of the abdomen. Both of these were placed without incident. The 5 mm trocar was then switched under direct visualization to an 8 mm trocar. At this point the da Elmer robot was then brought into position and docked appropriately. A grasper and a scissors were utilized as our instrumentation. The left-sided hernia was clearly visible. There is no evidence of hernia on the right. The peritoneum overlying the left inguinal hernia was then incised in a medial to lateral direction using curved scissors and electrocautery. Next a set peritoneal plane was then created the hernia sac was encountered this was dissected along its lateral edge and was followed until a large cord lipoma was encountered. This was reduced and cleared off of the cord and sac. Once this was performed I was then able to more fully separate the hernia sac off of the cord structures and was able to dissect this enough to create a sufficient shelf to insert the mesh. Pj's ligament was then dissected out medially. Once sufficient dissection was performed and hemostasis was found to be excellent. A ProGrip 10 x 15 piece of mesh was selected. This was placed in antibiotic solution. This was trimmed slightly smaller and was then inserted. It was then unrolled and laid over the defect. The mesh laid nicely and had good coverage. The peritoneum was then closed in a running manner using V-Loc suture. This closed the peritoneal flap nicely. At this point the suture along with the instrumentation were removed. Insufflation was allowed to escape. Trocars were removed. Local anesthetic was then injected into each of the incisions. The incisions were then closed with 4-0 Vicryl. Skin glue was applied as dressing. He was awake from anesthesia and taken to recovery in good condition Surgical Findings: Moderate sized left direct inguinal hernia; large cord lipoma Complications Complications: No Admit VTE Documentation VTE Present on Admission: No VTE Mechan Device Prophylaxis: SCD's VTE Pharm Prophylaxis ordered?: No Reason prophylaxis not ordered: Treatment Not Indicated
--- NOTE | 2024-11-14 12:27 | POSTOPAN2_ITS ---
Anesthesia Postop Eval I Sum Postop Eval Completion status Anesthesia document: Postop Eval 1 completed: Yes Anesthesia Postop Eval I Summary Anesthesia Postop Eval I Summary: Anesthesia Postop Eval I: Assessment Summary Airway patent Yes 11/14/24 11:44 [email or web address] Spontaneous unlabored Yes 11/14/24 11:44 [email or web address] [email or web address].[email or web address] respirations Mental status Awake,Calm 11/14/24 11:44 [email or web address] [email or web address].[email or web address] nausea No 11/14/24 11:44 SNOWBOARDING INSTRUCTOR.[email or web address] Vomiting No 11/14/24 11:44 [email or web address] [email or web address].[email or web address] Anesthesia Postop Eval I: Fluid Summary Crystalloid volume administer 900 11/14/24 11:44 [email or web address] [email or web address] (ml) Colloids volume administered ( ml) Blood Product volume administered (ml) Total IV fluid infused 900 11/14/24 11:44 [email or web address] [email or web address] Anesthesia Postop Eval I: Summary Notes Anesthesia Complication No 11/14/24 11:44 [email or web address] [email or web address] Anesthesia Complication Comment: Post-operative progress note Anesthesia: Postop Eval II Evaluation Mental status: Awake Pain Level: 0 nausea: No Vomiting: No Complications Anesthesia Complication: No
--- NOTE | 2024-11-14 12:27 | PCM.POSTANE2 ---
Anesthesia Postop Eval I Sum Postop Eval Completion status Anesthesia document: Postop Eval 1 completed: Yes Anesthesia Postop Eval I Summary Anesthesia Postop Eval I Summary: Anesthesia Postop Eval I: Assessment Summary Airway patent Yes 11/14/24 11:44 IMPROVEMENT [email or web address] Spontaneous unlabored Yes 11/14/24 11:44 IMPROVEMENT [email or web address] respirations Mental status Awake,Calm 11/14/24 11:44 IMPROVEMENT [email or web address] nausea No 11/14/24 11:44 IMPROVEMENT [email or web address] Vomiting No 11/14/24 11:44 IMPROVEMENT [email or web address] Anesthesia Postop Eval I: Fluid Summary Crystalloid volume administer 900 11/14/24 11:44 IMPROVEMENT [email or web address] (ml) Colloids volume administered ( ml) Blood Product volume administered (ml) Total IV fluid infused 900 11/14/24 11:44 IMPROVEMENT [email or web address] Anesthesia Postop Eval I: Summary Notes Anesthesia Complication No 11/14/24 11:44 IMPROVEMENT [email or web address] Anesthesia Complication Comment: Post-operative progress note Anesthesia: Postop Eval II Evaluation Mental status: Awake Pain Level: 0 nausea: No Vomiting: No Complications Anesthesia Complication: No
== END 2024-11-14 12:55 | disposition home or self-care (01) ==
LOC: SDC 08:36 → AC 08:39
PROVIDERS: Anesthesiology; PCP Family Medicine; Referring Provider Surgery; Visit Provider Surgery
PROC: 0YQ64ZZ Repair Left Inguinal Region, Percutaneous Endoscopic Approach (ICD-10-PCS; CPT 49650; principal; 2024-11-14 11:25)
DX: K40.90 Unilateral inguinal hernia, without obstruction or gangrene, not specified as recurrent (principal); I10 Essential (primary) hypertension; E78.00 Pure hypercholesterolemia, unspecified; F17.220 Nicotine dependence, chewing tobacco, uncomplicated; D17.5 Benign lipomatous neoplasm of intra-abdominal organs
CPT/HCPCS: 49650; S2900; 00830; 36415; 80048; 85027; J2405